=== PATIENT | female | born 1970 | race Caucasian/White ===

== ENCOUNTER 2017-06-20 08:50 | Emergency (ER) | payer MEDICAID ==
[2017-06-20 08:50] VITALS: BMI 25.7
--- NOTE | 2017-06-20 09:30 | C.PDOC ---
History Of Present Illness 47 year old female presents to the ED for evalution of nontraumatic buttock pain which began around 1 week ago. Patient notes her pain starts in her L buttocks and radiates down her left lateral leg. Patient denies fever, chills, headache, neck pain, urinary/bowel incontinence, upper/lower extremity numbness/ weakness, or direct injury/trauma to the affected areas. Time Seen by Provider: 06/20/17 09:15 Chief Complaint (Nursing): Back Pain History Per: Patient History/Exam Limitations: no limitations Onset/Duration Of Symptoms: Days (1 week ) Current Symptoms Are (Timing): Still Present Quality Of Discomfort: "Pain" Previous Symptoms: Back Pain. denies: Neck Pain, Prior Injury Associated Symptoms: denies: Incontinence, New Weakness, New Numbness Additional History Per: Patient Past Medical History Reviewed: Historical Data, Nursing Documentation, Vital Signs Vital Signs: Last Vital Signs Temp 97.6 F 06/20/17 10:12 Pulse 73 06/20/17 10:12 Resp 19 06/20/17 10:12 BP 137/89 06/20/17 10:12 Pulse Ox 98 06/20/17 13:19 - Medical History PMH: Anxiety, Depression, Gall Bladder Disease (2011) Surgical History: Cholecystectomy (2011) - [facility] Procedures SUPPLEMENT ABDOMINAL WALL WITH SYNTH SUB, OPEN APPROACH (02/12/16) Family History: States: Unknown Family Hx - Social History Hx Tobacco Use: Yes Hx Alcohol Use: No Hx Substance Use: No - Immunization History Hx Tetanus Toxoid Vaccination: No Hx Influenza Vaccination: Yes Hx Pneumococcal Vaccination: No Review Of Systems Constitutional: Negative for: Fever, Chills Cardiovascular: Negative for: Chest Pain Respiratory: Negative for: Cough, Shortness of Breath, SOB with Excertion, Wheezing Gastrointestinal: Negative for: Nausea, Vomiting, Abdominal Pain, Constipation Genitourinary: Negative for: Incontinence Musculoskeletal: Positive for: Back Pain (L buttock pain radiating into L). Negative for: Neck Pain Neurological: Negative for: Weakness, Numbness, Altered Mental Status, Headache , Dizziness Physical Exam - Physical Exam Appears: Well, Non-toxic, No Acute Distress Skin: Normal Color, Warm, Dry Head: Atraumatic, Normacephalic Eye(s): bilateral: Normal Inspection, PERRL, EOMI Chest: Symmetrical, No Deformity Gastrointestinal/Abdominal: Soft, No Tenderness Back: No CVA Tenderness, No Vertebral Tenderness, No Decreased ROM, No Paraspinal Tenderness, No Straight Leg Raising, Other (tenderness to left buttock ) Extremity: Normal ROM, No Calf Tenderness, Capillary Refill (less than 2 seconds ), No Deformity, No Swelling Neurological/Psych: Oriented x3, Normal Speech, Normal Cognition, Normal Motor, Normal Sensation Gait: Steady ED Course And Treatment O2 Sat by Pulse Oximetry: 98 (on RA) Pulse Ox Interpretation: Normal Medical Decision Making Medical Decision Making: Plan: * Flexeril PO * Toradol IM * Valium PO * reassess and disposition Progress: Flexeril PO, Toradol IM, Valium PO administered. On reassessment, patient is resting comfortably, showing no signs of distress and reports an improvement in her symptoms. Patient is ambulatory around the ED without distress and is stable for discharge. She has had no trauma and is neurologically intact. Discussed with patient that the presentation of her symptoms are consistent with sciatica. Patient is advised to follow up with her PMD within 1-2 days for further evaluation. Disposition - Disposition Disposition: HOME/ ROUTINE Disposition Time: 10:55 Condition: GOOD Additional Instructions: Follow-up with PMD within 2 days. Flexeril for pain. Return immediately with any worsening symptoms. Prescriptions: Cyclobenzaprine [Cyclobenzaprine HCl] 10 mg PO TID PRN #20 tab PRN Reason: Pain, Mild (1-3) Instructions: Sciatica (ED) Forms: [facility] (Latvian) - Clinical Impression Clinical Impression: Sciatica - Scribe Statement The provider has reviewed the documentation as recorded by the Scribe (Rachel Velarde) Provider Attestation: All medical record entries made by the Scribe were at my direction and personally dictated by me. I have reviewed the chart and agree that the record accurately reflects my personal performance of the history, physical exam, medical decision making, and the department course for this patient. I have also personally directed, reviewed, and agree with the discharge instructions and disposition.
[2017-06-20 10:13] VITALS: BP 137/89; PULSE 73; RESP 19; TEMP 97.6
[2017-06-20 10:56] VITALS: O2SAT 98
== END 2017-06-20 11:16 | disposition home or self-care (01) ==
LOC: C.ER 08:50
DX: M54.32 Sciatica, left side (principal)
CPT/HCPCS: 96372; 99283; J1885